=== PATIENT | male | born 1985 | race Caucasian/White ===

== ENCOUNTER → 2020-10-02 09:37 | Outpatient (CLI) | payer SELFPAY ==
--- NOTE | 2020-10-02 12:46 | STRESSREP ---
Stress Test Report Exercise stress test. 35-year-old man with a history of chest pain. Stress protocol: Resting EKG demonstrates normal sinus rhythm with a rate of 70 bpm resting blood pressure is 140/94 mmHg. The patient exercised according to the regular Jacob protocol for a total duration of 12 minutes. The maximum heart rate attained was 184 bpm which was 100% of maximum predicted heart rate. Patient completed stage IV of the Jacob protocol. The patient maintained sinus rhythm throughout the recording. At rest there were no ST or T wave changes suggestive of ischemia and at peak exercise upsloping ST changes only were noted we did not meet the criteria for ischemia. The maximum workload was 13.7 metabolic equivalents the test was terminated due to dyspnea. The peak blood pressure was 190/86 mmHg with a rate-pressure product of 34,900. No clinical angina was noted no arrhythmias were noted. Conclusion: Exercise stress test with no EKG criteria for ischemia at a high workload. Good functional aerobic capacity. No arrhythmias noted.
== END ==
PROVIDERS: PCP Family Medicine; Referring Provider Family Medicine; Visit Provider Family Medicine
DX: I16.0 Hypertensive urgency (principal); R07.89 Other chest pain
CPT/HCPCS: 93017